=== PATIENT | male | born 1960 | race Caucasian/White ===

== ENCOUNTER 2024-12-18 07:19 | Day surgery (SDC) | payer BC ==
[2024-12-18] MEDS ORDERED: Propofol 200 MG/20 ML SDV ONE (07:57)
[2024-12-18] MEDS ORDERED: fentaNYL 50 MCG/ML SDV ONE (07:57)
[2024-12-18] MEDS ORDERED: Midazolam 1 MG/ML 2 ML SDV ONE (07:57)
[2024-12-18] MEDS: Lactated Ringers 1,000 ML IV SCH (07:59)
== END 2024-12-18 09:50 | disposition home or self-care (01) ==
LOC: JP.SDS 07:19
PROVIDERS: ATTEND Surgery
DX: Z12.11 Encounter for screening for malignant neoplasm of colon (principal); E66.9 Obesity, unspecified; Z86.0100 Personal history of colon polyps, unspecified
CPT/HCPCS: 45378; J2250; J2704; J3010; J7120; 00812-QZ